=== PATIENT | female | born 1935 | race Caucasian/White ===

== ENCOUNTER 2016-05-11 12:50 | Outpatient (CLI) | payer MEDICARE, OTHER | END 2016-05-11 12:51 | disposition home or self-care (01) | DX: Z12.31 Encounter for screening mammogram for malignant neoplasm of breast (principal) ==

== ENCOUNTER 2016-05-11 12:51 | Outpatient (CLI) | payer MEDICARE, OTHER | END 2016-05-11 12:52 | disposition home or self-care (01) | DX: M81.0 Age-related osteoporosis without current pathological fracture (principal); Z78.0 Asymptomatic menopausal state ==

== ENCOUNTER 2016-05-17 10:04 | Outpatient (CLI) | payer MEDICARE, OTHER | END 2016-05-17 10:05 | disposition home or self-care (01) | DX: M81.8 Other osteoporosis without current pathological fracture (principal) ==

== ENCOUNTER 2016-12-17 15:48 | Outpatient (CLI) | payer MEDICARE, OTHER ==
[2016-12-17 20:11] LABS: BILIRUBIN,URINE NEGATIVE (NEGATIVE)
[2016-12-17 20:27] LABS: UR CULTURE IF IND NOT INDICATED; WBC,URINE >25 /HPF (0-5)
== END 2016-12-17 15:49 | disposition home or self-care (01) ==
LOC: LAB.R 15:48
PROVIDERS: ATTEND Family Medicine
DX: R30.0 Dysuria (principal); R42 Dizziness and giddiness; G25.9 Extrapyramidal and movement disorder, unspecified
CPT/HCPCS: 81001; 87086

== ENCOUNTER 2016-12-25 13:50 | Outpatient (CLI) | payer MEDICARE, OTHER | END 2016-12-25 13:51 | disposition home or self-care (01) | LOC: LAB.WCP 13:50 | PROVIDERS: ATTEND Family Medicine | DX: R53.83 Other fatigue (principal); N39.0 Urinary tract infection, site not specified | CPT/HCPCS: 87077; 87086 ==

== ENCOUNTER 2018-08-06 19:53 | Outpatient (CLI) | payer MEDICARE, OTHER | END 2018-08-06 19:54 | disposition short-term general hospital (02) | LOC: EMS 19:53 | PROVIDERS: ATTEND Surgery | DX: R10.2 Pelvic and perineal pain (principal); W01.0XXA Fall on same level from slipping, tripping and stumbling without subsequent striking against object, initial encounter; Y92.009 Unspecified place in unspecified non-institutional (private) residence as the place of occurrence of the external cause | CPT/HCPCS: A0425; A0427; A0888 ==

== ENCOUNTER 2018-10-17 15:05 | Outpatient (CLI) | payer MEDICARE, OTHER ==
[2018-10-17 18:44] LABS: BASOPHILS # (AUTO) 0.1 10^3/uL (0.0-0.1); BASOPHILS % (AUTO) 0.8 %; EOSINOPHILS # (AUTO) 0.2 10^3/uL (0.0-0.7); EOSINOPHILS % (AUTO) 2.1 %; HGB - HEMOGLOBIN 12.5 g/dL (12.0-16.0); LYMPHOCYTES # (AUTO) 2.1 10^3/uL (1.5-3.5); LYMPHOCYTES % (AUTO) 23.5 %; MEAN CORPUSCULAR HEMOGLOBIN 29.6 pg (27.0-31.0); MEAN CORPUSCULAR HGB CONC 30.5 g/dL (32.0-36.0); MEAN CORPUSCULAR VOLUME 96.9 fL (81.0-99.0); MEAN PLATELET VOLUME 8.8 fL (7.9-10.8); MONOCYTES # (AUTO) 0.8 10^3/uL (0.0-1.0); MONOCYTES % (AUTO) 8.3 %; NEUTROPHILS # (AUTO) 5.9 10^3/uL (1.5-6.6); NEUTROPHILS % (AUTO) 65.1 %; PLT - PLATELET COUNT 360 10^3/uL (130-450); RED BLOOD COUNT 4.23 10^6/uL (4.20-5.40); RED CELL DISTRIBUTION WIDTH 14.8 % (12.0-15.0)
[2018-10-17 19:16] LABS: ALBUMIN 4.1 g/dL (3.2-5.5); ALBUMIN/GLOBULIN RATIO 1.5 (1.0-2.2); ALKALINE PHOSPHATASE 174 IU/L (42-121); ALT ALANINE AMINOTRANSFERASE < 10 IU/L (10-60); AST ASPARTATE AMINOTRANSFERASE 13 IU/L (10-42); BILIRUBIN,TOTAL 0.6 mg/dL (0.2-1.0); BUN - BLOOD UREA NITROGEN 18 mg/dL (6-20); CALCIUM 9.7 mg/dL (8.5-10.3); CARBON DIOXIDE - CO2 28 mmol/L (21-32); CHLORIDE 104 mmol/L (101-111); CREATININE 0.7 mg/dL (0.4-1.0); GFR - MDRD 80 (>89); GLUCOSE 101 mg/dL (70-100); MAGNESIUM 2.4 mg/dL (1.7-2.8); SODIUM 139 mmol/L (135-145); TOTAL PROTEIN 6.8 g/dL (6.7-8.2)
== END 2018-10-17 15:06 | disposition home or self-care (01) ==
LOC: LAB.WCP 15:05
PROVIDERS: ATTEND Family Medicine
DX: R73.01 Impaired fasting glucose (principal); E78.9 Disorder of lipoprotein metabolism, unspecified; M81.0 Age-related osteoporosis without current pathological fracture
CPT/HCPCS: 36415; 80053; 82306; 83735; 85025

== ENCOUNTER 2018-10-22 19:33 | Outpatient (CLI) | payer MEDICARE, OTHER | END 2018-10-22 19:34 | disposition short-term general hospital (02) | LOC: EMS 19:33 | PROVIDERS: ATTEND Surgery | DX: M25.551 Pain in right hip (principal); W06.XXXA Fall from bed, initial encounter | CPT/HCPCS: A0425; A0429; A0888 ==

== ENCOUNTER 2019-06-09 09:15 | Outpatient (CLI) | payer MEDICARE, OTHER ==
[2019-06-09 12:16] LABS: BASOPHILS # (AUTO) 0.1 10^3/uL (0.0-0.1); BASOPHILS % (AUTO) 0.8 %; EOSINOPHILS # (AUTO) 0.5 10^3/uL (0.0-0.7); EOSINOPHILS % (AUTO) 5.3 %; HGB - HEMOGLOBIN 15.1 g/dL (12.0-16.0); LYMPHOCYTES # (AUTO) 2.1 10^3/uL (1.5-3.5); LYMPHOCYTES % (AUTO) 23.9 %; MEAN CORPUSCULAR HEMOGLOBIN 29.3 pg (27.0-31.0); MEAN CORPUSCULAR HGB CONC 31.6 g/dL (32.0-36.0); MEAN CORPUSCULAR VOLUME 92.8 fL (81.0-99.0); MEAN PLATELET VOLUME 9.6 fL (7.9-10.8); MONOCYTES # (AUTO) 0.7 10^3/uL (0.0-1.0); MONOCYTES % (AUTO) 8.3 %; NEUTROPHILS # (AUTO) 5.3 10^3/uL (1.5-6.6); NEUTROPHILS % (AUTO) 61.2 %; PLT - PLATELET COUNT 286 10^3/uL (130-450); RED BLOOD COUNT 5.15 10^6/uL (4.20-5.40); RED CELL DISTRIBUTION WIDTH 15.1 % (12.0-15.0); WHITE BLOOD COUNT 8.7 x10^3/uL (4.8-10.8)
[2019-06-09 12:58] LABS: ALBUMIN 4.1 g/dL (3.2-5.5); ALBUMIN/GLOBULIN RATIO 1.3 (1.0-2.2); ALKALINE PHOSPHATASE 116 IU/L (42-121); ALT ALANINE AMINOTRANSFERASE < 10 IU/L (10-60); AST ASPARTATE AMINOTRANSFERASE 16 IU/L (10-42); BILIRUBIN,TOTAL 0.5 mg/dL (0.2-1.0); BUN - BLOOD UREA NITROGEN 19 mg/dL (6-20); CARBON DIOXIDE - CO2 28 mmol/L (21-32); CHLORIDE 104 mmol/L (101-111); CHOL/HDL RATIO 3.8 (<4.4); CHOLESTEROL 255 mg/dL; CREATININE 0.8 mg/dL (0.4-1.0); GFR - MDRD 69 (>89); GLUCOSE 119 mg/dL (70-100); HDL CHOLESTEROL 67 mg/dL; LDL CHOLESTEROL,CALCULATED 163 mg/dL; LDL/HDL RATIO 2.4 (<4.4); SODIUM 141 mmol/L (135-145); TOTAL PROTEIN 7.3 g/dL (6.7-8.2); VLDL CHOLESTEROL 25 mg/dL
[2019-06-09 13:52] LABS: HB2 TOTAL 15.3 g/dL; HEMOGLOBIN A1C 0.59 g/dL; HEMOGLOBIN A1C % 5.7 % (4.6-6.2)
== END 2019-06-09 23:59 | disposition home or self-care (01) ==
LOC: LAB.WCP 09:15
PROVIDERS: ATTEND Family Medicine
DX: R53.83 Other fatigue (principal); E78.9 Disorder of lipoprotein metabolism, unspecified; R73.01 Impaired fasting glucose; E78.5 Hyperlipidemia, unspecified; R42 Dizziness and giddiness
CPT/HCPCS: 36415; 80053; 80061; 83036; 83721; 84443; 85025

== ENCOUNTER 2021-08-28 07:13 | Outpatient (CLI) | payer MEDICARE, OTHER | END 2021-08-28 07:14 | disposition EMS.NT | LOC: EMS 07:13 | DX: U07.1 COVID-19 (principal) ==

== ENCOUNTER 2021-09-17 03:23 | Outpatient (CLI) | payer MEDICARE, OTHER | END 2021-09-17 03:24 | disposition EMS.NT | LOC: EMS 03:23 | DX: Z03.89 Encounter for observation for other suspected diseases and conditions ruled out (principal) ==

== ENCOUNTER 2021-10-25 09:11 | Outpatient (CLI) | payer MEDICARE, OTHER | END 2021-10-25 09:12 | disposition short-term general hospital (02) | LOC: EMS 09:11 | DX: R41.82 Altered mental status, unspecified (principal); R53.83 Other fatigue | CPT/HCPCS: A0425; A0427; A0888 ==

== ENCOUNTER 2021-11-27 11:26 | Outpatient (CLI) | payer MEDICARE, OTHER ==
[2021-11-27 11:39] LABS: ABSOLUTE RETICS # AUTO 0.106 10^6/uL (0.020-0.110); RED BLOOD COUNT 4.13 10^6/uL (4.20-5.40); RETICULOCYTE COUNT % (AUTO) 2.57 % (0.5-2.3)
[2021-11-27 12:05] LABS: % IRON SATURATION 23 % (20-50); IRON 85 ug/dL (28-170); TOTAL IRON BINDING CAPACITY 365 ug/dL (250-450); TRANSFERRIN 261 mg/dL (192-382)
== END 2021-11-27 11:27 | disposition home or self-care (01) ==
LOC: LAB.R 11:26
PROVIDERS: ATTEND Hospitalist
DX: D64.9 Anemia, unspecified (principal)
CPT/HCPCS: 82728; 83540; 84466; 85045

== ENCOUNTER 2021-12-01 08:53 | Outpatient (CLI) | payer MEDICARE, OTHER ==
[2021-12-05 11:49] LABS: FOLATE 12.6 ng/mL (5.90 - >24.8)
== END 2021-12-01 08:54 | disposition home or self-care (01) ==
LOC: LAB.R 08:53
PROVIDERS: ATTEND Hospitalist
DX: G93.41 Metabolic encephalopathy (principal); G20 Parkinson's disease; E87.6 Hypokalemia
CPT/HCPCS: 82607; 82746

== ENCOUNTER 2022-05-05 01:20 | Outpatient (CLI) | payer MEDICARE, OTHER | END 2022-05-05 01:21 | disposition EMS.NT | LOC: EMS 01:20 | DX: Z03.89 Encounter for observation for other suspected diseases and conditions ruled out (principal) ==